=== PATIENT | male | born 1950 | race Caucasian/White ===

== ENCOUNTER → 2017-03-25 | Outpatient (CLI) | payer OTHER ==
--- NOTE | 2017-03-25 15:56 | RADIOLOGY REPORT (SQ) ---
EXAM DESCRIPTION: KNEE RIGHT 4 VIEWS COMPLETED DATE/TIME: 03/25/2017 3:43 pm REASON FOR STUDY: PAIN IN RIGHT KNEE COMPARISON: None. TECHNIQUE: Four views study right knee LIMITATIONS: None. FINDINGS: A nondisplaced oblique fracture is seen of the proximal fibula. . Arthritic changes noted, with severe involvement of the medial and subpatellar compartments, prominen t osteophyte, and soft tissue calcification adjacent the anterior tibial tubercle and posterior to th e knee and suprapatellar. IMPRESSION: Nondisplaced oblique fracture proximal fibula. Severe arthritic change at the knee. TECHNICAL DOCUMENTATION: JOB ID: [id number] [employer]- All Rights Reserved
--- NOTE | 2017-03-25 15:59 | RADIOLOGY REPORT (SQ) ---
EXAM DESCRIPTION: VENOUS UNILATERAL LOWER COMPLETED DATE/TIME: 03/25/2017 3:39 pm REASON FOR STUDY: RLE PAIN M79.669 PAIN IN UNSPECIFIED LOWER LEG COMPARISON: Right knee films 03/25/2017 TECHNIQUE: Dynamic and static reeves scale and color images acquired of the right leg venous system. S elected spectral images acquired with additional compression and augmentation maneuvers. The contrala teral common femoral vein and saphenofemoral junction were also imaged. Images stored on PACS. LIMITATIONS: None. FINDINGS: RIGHT COMMON FEMORAL: Normal phasicity, compression and augmentation. No visualized echogenic material on g ray scale. No defects on color images. FEMORAL: Normal compression and augmentation. No visualized echogenic material on reeves scale. No defe cts on color images. POPLITEAL: Normal compression, augmentation. No visualized echogenic material on reeves scale. No defec ts on color images. CALF VESSELS: Normal compression, augmentation. No visualized echogenic material on reeves scale. No de fects on color images. GSV: Normal compression, augmentation. No visualized echogenic material on reeves scale. No defects o n color images. SSV: There is superficial thrombosis of the right lesser saphenous vein along proximal and mid third s. ANY DEEP VENOUS INSUFFICIENCY: Not evaluated. ANY EVIDENCE OF POPLITEAL CYST: No. OTHER: No other significant finding. LEFT COMMON FEMORAL VEIN AND SAPHENOFEMORAL JUNCTION: Normal phasicity, compression and augmentation. No visualized echogenic material on reeves scale. No de fects on color images. IMPRESSION: No evidence of deep venous thrombosis in the right leg. Superficial thrombophlebitis in the right proximal and mid thirds of lesser saphenous vein TECHNICAL DOCUMENTATION: JOB ID: [id number] [employer]- All Rights Reserved
== END ==
LOC: SP 14:24
PROVIDERS: ATTEND Physician Assistant
DX: S82.434A Nondisplaced oblique fracture of shaft of right fibula, initial encounter for closed fracture (principal); M79.89 Other specified soft tissue disorders; W19.XXXA Unspecified fall, initial encounter; M25.561 Pain in right knee
CPT/HCPCS: 93971

== ENCOUNTER 2020-08-26 09:13 | Day surgery (SDC) | payer MEDICARE, OTHER ==
[~2020-08-26 09:13] MED LIST: BUPIVACAINE HCL 0.75% INJ/PF (7.5 MG/1 ML) 10 ML SDV OS PRN; CHONDR SU A NA/HYALUR INTRAOC KIT (SURGICARE) ONE; EPINEPHRINE INJ/PF 1 MG/1 ML AMPULE ONE; KETOROLAC TROMETHAMINE 0.45% 4 DROP/0.4 ML DROPERETTE OS PRN; LIDOCAINE 1% INJ-PF (10 MG/ML) 30 ML SDV ONE; LIDOCAINE 4% INJ/PF (40 MG/ML) 5 ML AMPUL OS PRN
[2020-08-26] MEDS: TROPICAMIDE 1% OPH SOLN 15 ML OS PRN ×3 (09:50→10:15)
[2020-08-26] MEDS: CYCLOPENTOLATE 0.2%/PHENYLEPHRINE 1% OPH SOLN 2 ML OS PRN ×3 (09:50→10:15)
[2020-08-26] MEDS: BESIFLOXACIN HCL 0.6% OPH SUSP 5 ML BOTTLE OS PRN ×4 (09:50→11:10)
[2020-08-26] MEDS: TETRACAINE HCL 0.5% OPH SOLN 4 ML OS PRN ×3 (09:50→10:41)
[2020-08-26] MEDS ORDERED: MIDAZOLAM 2 MG/2 ML INJ ONE (10:26)
[2020-08-26] MEDS: DORZOLAMIDE HCL 2%/TIMOLOL MALEAT 0.5% OPH SOLN 10 ML OS PRN ×2 (11:10)
[2020-08-26] MEDS: PREDNISOLONE ACETATE 1% OPH SUSP 5 ML OS PRN ×2 (11:10)
--- NOTE | 2020-08-26 12:41 | Operative Report ---
Operative Report-[facility] Operative Report: DATE OF SURGERY: August 26, 2020 PREOPERATIVE DIAGNOSIS: CATARACT, LEFT EYE. POSTOPERATIVE DIAGNOSIS: CATARACT, LEFT EYE. PROCEDURE PERFORMED: PHACOEMULSIFICATION WITH POSTERIOR CHAMBER INTRAOCULAR LENS, LEFT EYE. Intraocular Lens Model : DC morocho 20.0 Total Phaco Time: 14.99 CDE SURGEON: MELANY FARAH MD ANESTHESIA: TOPICAL WITH MAC. INDICATIONS FOR SURGERY: Difficultly driving at night PROCEDURE: The patient was brought to the Operating Room and placed on the operative table. Following tetracaine drops, topical anesthesia was administered. This consisted of instrument wipe pledgets soaked in a solution of 4% Xylocaine mixed with 0.75% Marcaine in a 1:2 ratio. A 2 x 1 cm pledget was placed in the superior fornix. A 1 x 1 cm pledget was placed in the inferior fornix. The eye was patched shut for 5 minutes. The patch was removed. The eye was sterilely prepped and draped in the usual manner. Lid speculum was placed in the eye. The pledgets were removed. 4-0 black silk sutures were placed around the superior and the inferior rectus muscles to be used as traction. A conjunctival peritomy was made at the 10 o'clock position. Hemostasis was obtained with bipolar cautery. A posterior limbal groove was created using a crescent knife and dissected anteriorly towards the cornea. A sharp point blade was used to create a paracentesis site at the 2 o'clock position. 0.2 cc non preserved Lidocaine was injected into the anterior chamber. A 2.4 mm keratome was used to enter the anterior chamber through the groove. Viscoelastic was injected into the anterior chamber. An anterior capsulotomy was performed using Utrata forceps in a capsulorrhexis fashion. Hydrodissection and hydrodelineation were performed. Phacoemulsification was performed in [id number] technique. Following this, the I/A unit was used to remove residual cortex. Viscoelastic was injected into the capsular bag. The Intraocular lens was placed in the capsular bag. The I/A unit was used to remove residual viscoelastic. The wound was seen to be watertight under high and low pressure, and no sutures were placed. The intraocular lens was well centered. The pressure was adjusted in the eye to normal pressure. The 4-0 black silk sutures and lid speculum were removed. The eye was shielded after Besivance,prednisolone, and Cosopt drops were placed. The patient tolerated the procedure well and was sent to the Recovery Room in good condition.
== END 2020-08-26 11:45 | disposition home or self-care (01) ==
LOC: SC 09:13
PROVIDERS: ATTEND Ophthalmology
DX: H25.12 Age-related nuclear cataract, left eye (principal); H43.813 Vitreous degeneration, bilateral; H04.123 Dry eye syndrome of bilateral lacrimal glands; H35.362 Drusen (degenerative) of macula, left eye; I10 Essential (primary) hypertension; E78.00 Pure hypercholesterolemia, unspecified; D64.9 Anemia, unspecified
CPT/HCPCS: 66984; V2632; J2250; J3490 ×5; A9270; J0171